=== PATIENT | male | born 1945 | race Two or more races ===

== ENCOUNTER 2024-06-08 17:20 | Inpatient (IN) | payer OTHER ==
[~2024-06-08] VITALS: Ht 170.2 cm; Wt 80.7 kg
[2024-06-08 17:49] LABS: BASOPHILS # (AUTO) 0.1 K/uL (0.0-0.2); BASOPHILS % (AUTO) 0.9 % (0.0-2.0); EOSINOPHILS # (AUTO) 0.1 K/uL (0.0-0.7); EOSINOPHILS % (AUTO) 2.3 % (0.0-6.0); HEMATOCRIT 40 % (39-51); HEMOGLOBIN 13.5 g/dL (13.5-17.5); LYMPHOCYTES # (AUTO) 1.5 K/uL (0.8-4.8); LYMPHOCYTES % (AUTO) 23.6 % (20.0-44.0); MEAN CORPUSCULAR HEMOGLOBIN 32 PG (26.0-33.0); MEAN CORPUSCULAR HGB CONC 34 g/dl (31.0-36.0); MEAN CORPUSCULAR VOLUME 95 fL (80-96); MONOCYTES # (AUTO) 0.4 K/uL (0.1-1.30); MONOCYTES % (AUTO) 6.5 % (2.0-12.0); NEUTROPHILS # (AUTO) 4.3 K/uL (1.8-8.9); NEUTROPHILS % (AUTO) 66.7 % (43.0-81.0); PLATELET COUNT (AUTO) 233 K/uL (150-450); RED BLOOD CELL COUNT(AUTO) 4.23 MIL/uL (4.5-6.0); RED CELL DISTRIBUTION WIDTH 13.1 % (11.5-15.0); WHITE BLOOD COUNT (AUTO) 6.4 K/uL (4.3-11.0)
[2024-06-08 17:56] LABS: CALCIUM, SERUM 9.9 mg/dL (8.5-10.1); CARBON DIOXIDE 30 mmol/L (21-32); CHLORIDE 104 mmol/L (98-107); CREATININE 0.8 mg/dL (0.6-1.3); GLUCOSE 157 mg/dL (74-106); POTASSIUM 3.7 mmol/L (3.5-5.1); SODIUM SERUM 138 mmol/L (136-145); UREA NITROGEN, BLOOD 19 mg/dL (7-18)
[2024-06-08] MEDS ORDERED: ONDANSETRON HCL/PF 4 MG/2 ML VIAL ONE (17:59)
[2024-06-08] MEDS ORDERED: MORPHINE SULFATE INJ 4 MG/ML DISP.SYRIN ONE (18:00)
[2024-06-08] MEDS: IV NS 0.9% 500 ML BAG IV ONE (18:08)
[2024-06-08] MEDS: ONDANSETRON HCL/PF 4 MG/2 ML VIAL IVP ONE (18:09)
[2024-06-08] MEDS: MORPHINE SULFATE INJ 2 MG/ML DISP.SYRIN IV ONE (18:10)
[2024-06-08 19:18] VITALS: O2SAT 97
[2024-06-08 23:00] VITALS: BP 116/61; TEMP 98.1; O2SAT 96
[2024-06-08] MEDS ORDERED: MAG HYDROX/AL HYDROX/SIMETH 30 ML UDC PO PRN (23:00)
[2024-06-08] MEDS ORDERED: ONDANSETRON HCL/PF 4 MG/2 ML VIAL IVP PRN (23:00)
[2024-06-08] MEDS: IV LR 1000 ML 1,000 ML IV SCH (23:33)
[2024-06-08] MEDS: MORPHINE SULFATE INJ 4 MG/ML DISP.SYRIN IV PRN (23:51)
[2024-06-09 07:00] LABS: BASOPHILS % (AUTO) 0.4 % (0.0-2.0); EOSINOPHILS % (AUTO) 0.3 % (0.0-6.0); HEMATOCRIT 31 % (39-51); HEMOGLOBIN 10.6 g/dL (13.5-17.5); LYMPHOCYTES # (AUTO) 0.8 K/uL (0.8-4.8); LYMPHOCYTES % (AUTO) 12.6 % (20.0-44.0); MEAN CORPUSCULAR HEMOGLOBIN 32 PG (26.0-33.0); MEAN CORPUSCULAR HGB CONC 34 g/dl (31.0-36.0); MEAN CORPUSCULAR VOLUME 95 fL (80-96); MONOCYTES # (AUTO) 0.7 K/uL (0.1-1.30); MONOCYTES % (AUTO) 11.1 % (2.0-12.0); NEUTROPHILS # (AUTO) 5.1 K/uL (1.8-8.9); NEUTROPHILS % (AUTO) 75.6 % (43.0-81.0); PLATELET COUNT (AUTO) 166 K/uL (150-450); RED CELL DISTRIBUTION WIDTH 13.4 % (11.5-15.0); WHITE BLOOD COUNT (AUTO) 6.7 K/uL (4.3-11.0)
[2024-06-09 07:33] LABS: INR 1.03 (0.91-1.10); PROTHROMBIN TIME 10.9 SECS (9.2-11.1)
[2024-06-09 07:42] LABS: CALCIUM, SERUM 8.8 mg/dL (8.5-10.1); CREATININE 0.6 mg/dL (0.6-1.3); MAGNESIUM 2.2 mg/dL (1.8-2.4); PHOSPHORUS 3.5 mg/dL (2.5-4.9); POTASSIUM 4.4 mmol/L (3.5-5.1)
[2024-06-09 08:00] VITALS: BP 112/57; TEMP 98.1; O2SAT 98
[2024-06-09 08:31] LABS: THYROID STIMULATING HORMONE 0.51 uIU/mL (0.358-3.74)
[2024-06-09] MEDS ORDERED: ATOR40TA PO (13:04)
[2024-06-09] MEDS: IV LR 1000 ML 1,000 ML IV PRN (13:04)
[2024-06-09] MEDS ORDERED: ASPI-1169 PO (13:04)
[2024-06-09 13:28] LABS: INR 1.05 (0.91-1.10); PROTHROMBIN TIME 11.1 SECS (9.2-11.1)
[2024-06-09 16:00] VITALS: BP 124/60; TEMP 98.2; O2SAT 97
[2024-06-09 20:00] VITALS: BP 134/49; TEMP 98.6; O2SAT 95
== END 2024-06-09 23:24 | disposition short-term general hospital (02) | DRG 535 ==
LOC: ER 17:31 → MED 22:29
PROVIDERS: ATTEND Internal Medicine
DX: S72.142A Displaced intertrochanteric fracture of left femur, initial encounter for closed fracture (principal); N17.0 Acute kidney failure with tubular necrosis; W19.XXXA Unspecified fall, initial encounter; I10 Essential (primary) hypertension; W18.30XA Fall on same level, unspecified, initial encounter; Y93.H2 Activity, gardening and landscaping; Y92.007 Garden or yard of unspecified non-institutional (private) residence as the place of occurrence of the external cause
CPT/HCPCS: 36415; 71045-TC; 73502; 80048-TC; 80061-TC; 83735-TC; 84100-TC; 84443-TC; 85025-TC; 85610-TC; 86850-TC; 93307-TC; A4223; G0378; J2270; J2405; J7030; J7120